=== PATIENT | male | born 1940 | race Caucasian/White ===

== ENCOUNTER → 2017-10-21 | Outpatient (CLI) | payer OTHER | LOC: LAB 15:16 → LAB SHORT 15:16 | DX: Z48.02 Encounter for removal of sutures (principal); C44.311 Basal cell carcinoma of skin of nose | CPT/HCPCS: 87070; 87077; 87186; 87205 ==

== ENCOUNTER 2023-06-06 09:49 | Day surgery (SDC) | payer OTHER ==
[~2023-06-06] VITALS: Ht 172.7 cm; Wt 104.8 kg
[~2023-06-06 09:49] MED LIST: AMLO10 PO; ATOR10 PO; AZELASTINE137 MCG/06; Aspir 8181 MG PO; Balanced Salt Epinephrine Irrigation Solution 500 mL IR SCH; CELE200 PO; FLONASE ALLERG9.9 M2; IPRATROPIUM BRO15 ML; LOSARTAN POTAS100 M1 PO; Lidocaine HCl/Pf 1% 5 ML VIAL XX SCH; METPRE4DP; Moxifloxacin HCL 0.5 MG/0.1 ML 0.4MLSYR LEFTEYE SCH; NS 500 ML IV ONE; PHENYLEPHRINE\\TROPICAMIDE\\TETRACAINE OPHTHALMIC DILATING SOLN LEFTEYE PRN; Phenylephrine Frt 10% Opth (ORSC) ONE; Povidone-Iodine 450 DROP/30 ML Solution LEFTEYE SCH; Povidone-Iodine 450 DROP/30 ML Solution ONE; Triamcinolone Inj Susp 40 MG / ML 1ML Vial INJ SCH; Triamcinolone Inj Susp 40 MG / ML 1ML Vial ONE
[2023-06-06] MEDS ORDERED: NS 1,000 ML IV ONE ×2 (10:11)
[2023-06-06] MEDS ORDERED: Midazolam HCl 1MG / ML 2ML Vial ONE (10:18)
[2023-06-06] MEDS ORDERED: FentaNYL Citrate 50 MCG/ML 2 ML Injection ONE (10:18)
[2023-06-06] MEDS ORDERED: Tetracaine HCl 0.5% Opth Soln 15 ml LEFTEYE ONE (10:48)
[2023-06-06] MEDS ORDERED: Glycopyrrolate 0.2 MG/ML 5ML VIAL ONE (10:55)
[2023-06-06 11:18] VITALS: BP 123/71
== END 2023-06-06 11:35 | disposition home or self-care (01) ==
LOC: ORSCSDS 09:49
PROVIDERS: Ophthalmology
PROC: 08RK3JZ Replacement of Left Lens with Synthetic Substitute, Percutaneous Approach (ICD-10-PCS; principal; 2023-06-06 11:00)
DX: H25.12 Age-related nuclear cataract, left eye (principal); H21.81 Floppy iris syndrome; Z96.1 Presence of intraocular lens; I10 Essential (primary) hypertension; E78.5 Hyperlipidemia, unspecified; G47.33 Obstructive sleep apnea (adult) (pediatric); Z87.891 Personal history of nicotine dependence; Z79.899 Other long term (current) drug therapy; Z79.82 Long term (current) use of aspirin; E66.9 Obesity, unspecified; Z68.35 Body mass index [BMI] 35.0-35.9, adult
CPT/HCPCS: J2250; J3010; J3301; J7040; V2632